=== PATIENT | female | born 1985 | race Caucasian/White ===

== ENCOUNTER 2025-02-05 09:56 | Day surgery (SDC) | payer BC, SELFPAY ==
[2025-01-21 11:27] LABS: Hematocrit 43.6 % (37-47); Hemoglobin 14.2 g/dL (12.0-15.0); Mean Corp Hgb Conc 32.6 g/dL (32-36); Mean Platelet Vol. 10.3 fl (6.2-12.0); Platelet Count 385 K/mm3 (150-450); RBC Distribution Width CV 12.9 % (11.6-14.6); RBC Distribution Width SD 40.2 fl (35.1-43.9); Red Blood Count 5.07 M/mm3 (4.2-5.4); White Blood Count 8.7 K/mm3 (4.4-11.0)
[2025-01-21 12:49] LABS: Anion Gap 12 (5-15); BUN 13 mg/dL (4-19); BUN/Creat Ratio 13.3 RATIO (10-20); Calcium,Total 9.9 mg/dL (7.6-11.0); Carbon Dioxide 23.4 mmol/L (21.0-32.0); Chloride 104 mmol/L (98-108); Creatinine, Serum 0.99 mg/dL (0.70-1.20); EST Glomerular Filtration Rate 75 (>60); Glucose 90 mg/dL (70-99); Potassium 4.1 mmol/L (3.3-5.1); Sodium Level 140 mmol/L (133-145)
--- NOTE | 2025-01-30 12:24 | PAT.ANESEVAL ---
Pre-Assessment Diagnosis/Proposed Procedure Planned Operative Procedure(s): (N/A) Abdominal Panniculectomy Anesthesia History Anesthesia History - sales support assistant: Anesthesia History - sales support assistant Hx Hospitalization No 01/26/25 14:47 Any Problems With Anesthesia No 01/26/25 14:47 Cholinesterase deficiency No 01/26/25 14:47 You/Your Family Experience No 01/26/25 14:47 fever (hyperthermia) with Relationship Recent Exposure to Contagious Disease Does patient have nerve No 01/26/25 14:47 stimulator Patient instructed to have device shut off --Does patient have Pacemaker or ICD? When Was Last Pacemaker Check QUESTION #4 FULL TEXT: You/Your Family Experience fever (hyperthermia) with Anesthesia Last Oral Intake Last Oral intake: Last Oral Intake NPO since Meds taken in AM with sips of water? Meds patient instructed to take am of surgery PONV PONV - sales support assistant: PONV - sales support assistant Female Yes 01/26/25 14:47 HX of Motion Sickness No 01/26/25 14:47 HX of N/V After Surgery Yes 01/26/25 14:47 Non-Smoker Yes 01/26/25 14:47 Duration of Surgery greater Yes 01/26/25 14:47 than 60 minutes Number of Risk Factors 4 01/26/25 14:47 PONV Score Severe Risk 01/26/25 14:47 Height & Weight Height & Weight: Anesthesia: Height & Weight Height 5 ft 4 in 01/28/25 09:28 Respiratory Assessment Respiratory Assessment - sales support assistant: Respiratory Tract Infection Hx - sales support assistant Hx Respiratory Tract Infection No 01/26/25 14:47 STOP Sleep Apnea STOP Sleep Apnea - sales support assistant: STOP Sleep Apnea - sales support assistant Hx Hypertension No 01/26/25 14:47 Hx Sleep Apnea No 01/26/25 14:47 CPAP BIPAP Do you snore loudly (louder No 01/26/25 14:47 than talking or can be heard Do you often feel tired/ No 01/26/25 14:47 fatigued/ sleepy during daytime? Has anyone observed you stop No 01/26/25 14:47 breathing during sleep? STOP Results Negative 01/26/25 14:47 QUESTION #5 FULL TEXT : Do you snore loudly (louder than talking or can be heard through closed doors)? 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 Specify any problems Hx of Preganancy in last 3 No 01/26/25 14:47 Months Nurse Filling Out Transfusion MGRIFFITH 01/26/25 14:47 & Questions: Date: 01/26/25 01/26/25 14:47 Time: 14:50 01/26/25 14:47 Patient unable to answer at this time (ie. confused, unrespo /Reproduction History /Reproductive History - sales support assistant: /Reproductive Hx- sales support assistant Hx Now No 01/26/25 14:47 Gestational Age (in weeks): EDC: Hx Hx Para Hx Section SAB No 01/26/25 14:47 [facility] Medical History (Updated 01/26/25 @ 14:58 by Willow Avery) Wears glasses Migraine headache Heartburn Non-smoker Cardiology follow-up encounter PONV (postoperative nausea and vomiting) History of frequent headaches History of goiter History of blood transfusion Home Medications ?Medication ?Instructions ?Recorded ?Last Taken ?Type L norgest/EE 1 tab PO QDAY 12/09/24 Unknown History 0.15-0.02mg/0.15-0.025mg/0.15-0.03mg/EE 0.01 mg tabs,3mo (Rivelsa) cephalexin 500 mg capsule 500 mg PO BID #14 caps 01/28/25 Unknown Rx oxycodone-acetaminophen 5 mg-325 1 tab PO TID PRN pain 3 days #8 01/28/25 Unknown Rx mg tablet (Percocet) tab-caps Allergy/AdvReac Type Severity Reaction Status Date / Time benzonatate (From Tessalon Allergy Mild Anaphylaxis Verified 01/26/25 14:44 Neville) codeine Allergy Mild Vomiting Verified 01/26/25 14:44 Family History (Updated 12/09/24 @ 11:04 by Maribel Whitehead) Father AA (alcohol abuse) Bleeding disorder Mother Depression Suicide attempt Surgical History (Updated 01/26/25 @ 14:48 by Willow Avery) History of tubal ligation History of wisdom tooth extraction History of surgery History of section History of foot surgery History of hernia surgery Social History (Updated 12/09/24 @ 11:17 by Maribel Whitehead) Smoking Status: Never smoker alcohol intake: never substance use type: does not use additional social history: pt denies edibles, denies marijuana use, denies vaping, uses aspirin and ibuprofen as needed. Audit: Pertinent Findings Pertinent Findings EKG Perinent findings: January 22, 2025. Sinus rhythm. Short DE interval. Slight mid precordial repolarization disturbance consider ischemia. (Primary care referred patient to cardiology to address abnormal EKG.) Consult pertinent findings: January 27, 2025. Dr. Jalloh. 1. Cardiac clearance for surgery-patient works out at a gym. Greater than 8 METS. No further testing required for upcoming moderate risk surgery. Recommendation Anesthesia Recommendation Anesthesia recommendation: OPTIMIZED for anesthesia
[2025-02-05] VITALS (10 sets, daily range): BP systolic 114–153; BP diastolic 53–89; PULSE 76–114; RESP 16–18; TEMP 36.1–37; O2SAT 94–100; BMI 29.2
[2025-02-05] MEDS: 0.9% Normal Saline (1000mL) 1,000 ML 15 ML IV (10:54)
--- NOTE | 2025-02-05 11:41 | PCM.PRE.AN2 ---
ASA Classification* ASA Classification ASA Classification: 3 Assessment & Plan Anesthesia* Anesthesia Assessment Anesthesia Assessment: Discussed sedation and/or anesthesia options, risks, benefits, and alternatives with patient/parents/legal guardian/POA. Questions invited. The patient/parents/legal guardian/POA seems to understand and agrees to proceed with anesthesia plan. Reviewed the physical assessment, medical history, allergy history and patient home medications list prior to surgery/procedure/anesthetic and documented any changes. Performed airway and anesthesia risk assessments. Anesthesia Type Anesthesia Type: General History Source History Obtained from:: Patient and Chart Anesthesia Focused Assessment* Temperature: 98.6 F Pulse Rate: 114 Blood Pressure: 153/89 Respiratory Rate: 18 Pulse Ox: 100 Oxygen Delivery Method: Room Air Airway Assessment Mouth opens: >3 cm Mallampati Score: III Teeth Condition: Intact Neck Range of motion (ROM): Full ROM Focused Labs Anesthesia Preop lab: CBC WBC 8.7 K/mm3 (4.4-11.0) 01/21/25 10:15 01/21/25 RBC 5.07 M/mm3 (4.2-5.4) 01/21/25 10:15 01/21/25 Hgb 14.2 g/dL (12.0-15.0) 01/21/25 10:15 01/21/25 Hct 43.6 % (37-47) 01/21/25 10:15 01/21/25 Plt Count 385 K/mm3 (150-450) 01/21/25 10:15 01/21/25 CHEMISTRY Potassium 4.1 mmol/L (3.3-5.1) 01/21/25 10:15 01/21/25 Sodium 140 mmol/L (133-145) 01/21/25 10:15 01/21/25 BUN 13 mg/dL (4-19) 01/21/25 10:15 01/21/25 Creatinine 0.99 mg/dL (0.70-1.20) 01/21/25 10:15 01/21/25 Glucose 90 mg/dL (70-99) 01/21/25 10:15 01/21/25 COAG Pre-Assessment Diagnosis/Proposed Procedure Planned Operative Procedure(s): (N/A) Abdominal Panniculectomy Anesthesia History Anesthesia History - protocol manager: Anesthesia History - protocol manager Hx Hospitalization No 01/26/25 14:47 Any Problems With Anesthesia PONV 01/26/25 14:47 Cholinesterase deficiency No 01/26/25 14:47 You/Your Family Experience No 01/26/25 14:47 fever (hyperthermia) with Relationship Recent Exposure to Contagious No 02/05/25 10:46 Disease Does patient have nerve No 01/26/25 14:47 stimulator Patient instructed to have device shut off --Does patient have Pacemaker No 02/05/25 10:46 or ICD? When Was Last Pacemaker Check QUESTION #4 FULL TEXT: You/Your Family Experience fever (hyperthermia) with Anesthesia Last Oral Intake Last Oral intake: Last Oral Intake NPO since 22:00 02/05/25 10:46 Meds taken in AM with sips of No 02/05/25 10:46 water? Meds patient instructed to take am of surgery PONV PONV - protocol manager: PONV - protocol manager Female Yes 01/26/25 14:47 HX of Motion Sickness No 01/26/25 14:47 HX of N/V After Surgery Yes 01/26/25 14:47 Non-Smoker Yes 01/26/25 14:47 Duration of Surgery greater Yes 01/26/25 14:47 than 60 minutes Number of Risk Factors 4 01/26/25 14:47 PONV Score Severe Risk 01/26/25 14:47 Height & Weight Height & Weight: Anesthesia: Height & Weight Height 5 ft 5 in 02/05/25 10:46 Weight: 79.9 kg 02/05/25 10:46 Body Mass Index (BMI) 29.2 02/05/25 10:46 Respiratory Assessment Respiratory Assessment - protocol manager: Respiratory Tract Infection Hx - protocol manager Hx Respiratory Tract Infection No 01/26/25 14:47 STOP Sleep Apnea STOP Sleep Apnea - protocol manager: STOP Sleep Apnea - protocol manager Hx Hypertension No 01/26/25 14:47 Hx Sleep Apnea No 01/26/25 14:47 CPAP BIPAP Do you snore loudly (louder No 01/26/25 14:47 than talking or can be heard Do you often feel tired/ No 01/26/25 14:47 fatigued/ sleepy during daytime? Has anyone observed you stop No 01/26/25 14:47 breathing during sleep? STOP Results Negative 01/26/25 14:47 QUESTION #5 FULL TEXT : Do you snore loudly (louder than talking or can be heard through closed doors)? 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 Specify any problems Hx of Preganancy in last 3 No 01/26/25 14:47 Months Nurse Filling Out Transfusion MGRIFFITH 01/26/25 14:47 & Questions: Date: 01/26/25 01/26/25 14:47 Time: 14:50 01/26/25 14:47 Patient unable to answer at this time (ie. confused, unrespo /Reproduction History /Reproductive History - protocol manager: /Reproductive Hx- protocol manager Hx Now No 01/26/25 14:47 Gestational Age (in weeks): EDC: Hx Hx Para Hx Section SAB No 01/26/25 14:47 Active Medications Active Medications: Current Medications Generic Name Dose Route Start Last Admin Trade Name Freq PRN Reason Stop Dose Admin Cefazolin Sodium 2 gm/ N/A 20 mls @ 400 mls/hr 02/05/25 13:05 IV 02/05/25 13:07 PREOP ONE Sodium Chloride 1,000 mls @ 15 mls/hr 02/05/25 10:10 02/05/25 10:54 IV 15 mls/hr .Q48H HOWIE Administration PFSH Medical History Wears glasses Migraine headache Heartburn Non-smoker Cardiology follow-up encounter PONV (postoperative nausea and vomiting) History of frequent headaches History of blood transfusion Home Medications ?Medication ?Instructions ?Recorded ?Last Taken ?Type L norgest/EE 1 tab PO QDAY 12/09/24 Unknown History 0.15-0.02mg/0.15-0.025mg/0.15-0.03mg/EE 0.01 mg tabs,3mo (Rivelsa) cephalexin 500 mg capsule 500 mg PO BID #14 caps 01/28/25 02/04/25 20:00 Rx Allergy/AdvReac Type Severity Reaction Status Date / Time benzonatate (From Tessalon Allergy Mild Anaphylaxis Verified 02/05/25 10:44 Neville) codeine Allergy Mild Vomiting Verified 02/05/25 10:44 Family History Father AA (alcohol abuse) Bleeding disorder Mother Depression Suicide attempt Surgical History (Updated 02/05/25 @ 11:[address] Wellington Coto MD) History of goiter History of tubal ligation History of wisdom tooth extraction History of surgery History of section History of foot surgery History of hernia surgery Social History Smoking Status: Never smoker alcohol intake: never substance use type: does not use additional social history: pt denies edibles, denies marijuana use, denies vaping, uses aspirin and ibuprofen as needed. Review of Systems (Anesthesia) ROS Narrative System reviewed and no additional complaints, except as documented.
--- NOTE | 2025-02-05 12:07 | PCM.HP.BLA ---
History and Physical Date of Admission: 02/05/25 The patient presents for abdominal panniculectomy. The patient is noted to have an abdominal pannus. She is marked in the preop holding area prior to surgery. Informed consent was obtained for abdominal panniculectomy. There are no changes from the H&P dated 01/27/2025. Assessment & Plan Assessment/Plan (1) Painful cutaneous scar: (2) Intertrigo: (3) Panniculus: PLAN: Plan Patient for abdominal panniculectomy.
[2025-02-05] MEDS: Cefazolin 2 GM in Syringe IV (12:42)
[2025-02-05] MEDS: Bupivacaine 0.25% 30 ML Vial (15:05)
[2025-02-05] MEDS: Gentamicin 80 MG/2 ML Vial (15:05)
--- NOTE | 2025-02-05 15:31 | DCINST_ITS ---
Discharge Instructions Dressing / Incision Additional Dressing/Incision Instructions:: Follow the instructions given in the office. Keep your back elevated (recliner position) Follow Up Care Please Follow Up With: Mi Scott MD When: Next week Test Results: Test results from this visit will be discussed in further detail at your follow- up appointment, if applicable. Discharge Plan Admission Attending Provider: Mi Scott Primary Care Provider: Tana Jasso Instructions Print Language: Icelandic Discharge Orders/Prescriptions Prescriptions: No Action L norgest/e.estradiol-e.estrad [Rivelsa] 0.15 mg-20 mcg/ 0.15 mg-25 mcg tablets,dose pack,3 month 1 tab PO QDAY cephalexin 500 mg capsule 500 mg PO BID Qty: 14 0RF Referrals / Follow Up: Tana Jasso MD [Primary Care Provider] - Disposition Disposition (needs filled in before D/C Order can be placed): Home, Self Care
--- NOTE | 2025-02-05 15:33 | OP.PCM_ITS ---
Problems Associated Problem List Diagnoses (1) Painful cutaneous scar: (2) Intertrigo: (3) Panniculus: Operative Report (Standard) Operative Information Date of Procedure: 02/05/25 Pre-Operative Diagnosis: Abdominal panniculus; intertrigo; painful scar Post-Operative Diagnosis: Same Surgery/Procedure Performed: Panniculectomy (870gm) upper lining cementer: Yes Business Continuity Analyst: Bina Michelle Tasks completed by museum assistant: Closing and Retracting Type of Anesthesia: General RN Documented Start/Stop Times: Operation Date: 02/05/25 12:00 Case Time Into Pre-Op 02/05/25 10:07 Out of Pre-Op 02/05/25 12:38 Anesthesia Start 02/05/25 12:42 Into Room 02/05/25 12:42 Procedure Start 02/05/25 13:16 Procedure End 02/05/25 15:16 Procedure Start Time: 13:16 Procedure Stop Time: 15:16 Select all DRAINS/GRAFTS/IMPLANTS that apply: None Estimated Blood Loss: 50 cc Specimen collected: No Description of surgery: The patient presents today for panniculectomy for her chronic intertrigo. The procedure been thoroughly reviewed with the patient. Informed consent is obtained and she is marked in the preop holding area prior to surgery. The patient is brought to the operating room and placed under general anesthesia in the supine position. Care is taken to pad all pressure points, insert a Chen catheter, sequential compression stockings, and a warming blanket. The abdomen is prepped and draped in the usual sterile fashion. Following this, an incision is made across the premarked area and carefully carried down through the subcutaneous tissue. The fascia is identified and careful dissection continued cephalad undermining the previously marked limits of the panniculus. Following this, the patient is placed in a semi-Fowlers position and the extent of the redundant skin and subcutaneous fat is demarcated. After taking measures to ensure dissection does not extend the fascia, the demarcated area is incised and excised. The wound is then irrigated with antibiotic solution and checked for hemostasis which is controlled with cautery. Following this, the incision is tacked together along the premarked areas and stapled. A few Vicryl sutures are placed in the deep subcutaneous tissue. Wound closure then commences in 3 layers using a 3-0 STRATAFIX suture. At the conclusion of the closure, 1/4% plain Marcaine is used to inject along the incision. The wound is dressed with Xeroform and ABDs and taped in place. She is placed in an abdominal binder. The Chen catheter is removed. She tolerated the procedure well was taken to the recovery area in an awake and stable condition. Needle and sponge counts are correct. Surgical Findings: As above Complications Complications: No Admit VTE Documentation VTE Mechan Device Prophylaxis: SCD's
--- NOTE | 2025-02-05 15:34 | PCM.POST.ANE ---
Anesthesia: Postop Eval I Current Vital Signs Temperature: 98.1 F Pulse Rate: 88 Blood Pressure: 128/59 Respiratory Rate: 18 Pulse Ox: 97 Oxygen Delivery Method: Room Air Assessment Airway patent: Yes Spontaneous unlabored respirations: Yes Mental status: Awake and Calm nausea: No Vomiting: No Anesthesia Complication: No Fluid Hydration Crystalloid volume administer (ml): 1,500 Total IV fluid infused: 1,500 Progress Note Anesthesia document: Postop Eval 1 completed: Yes
--- NOTE | 2025-02-05 19:17 | POSTOPAN2_ITS ---
Anesthesia Postop Eval I Sum Postop Eval Completion status Anesthesia document: Postop Eval 1 completed: Yes Anesthesia Postop Eval I Summary Anesthesia Postop Eval I Summary: Anesthesia Postop Eval I: Assessment Summary Airway patent Yes 02/05/25 15:34 UNIVERSITY RELATIONS VICE PRESIDENT.MEDM Spontaneous unlabored Yes 02/05/25 15:34 UNIVERSITY RELATIONS VICE PRESIDENT.MEDM respirations Mental status Awake,Calm 02/05/25 15:34 UNIVERSITY RELATIONS VICE PRESIDENT.MEDM nausea No 02/05/25 15:34 UNIVERSITY RELATIONS VICE PRESIDENT.MEDM Vomiting No 02/05/25 15:34 UNIVERSITY RELATIONS VICE PRESIDENT.MEDM Anesthesia Postop Eval I: Fluid Summary Crystalloid volume administer 1,500 02/05/25 15:34 UNIVERSITY RELATIONS VICE PRESIDENT.MEDM (ml) Colloids volume administered ( ml) Blood Product volume administered (ml) Total IV fluid infused 1,500 02/05/25 15:34 UNIVERSITY RELATIONS VICE PRESIDENT.MEDM Anesthesia Postop Eval I: Summary Notes Anesthesia Complication No 02/05/25 15:34 UNIVERSITY RELATIONS VICE PRESIDENT.MEDM Anesthesia Complication Comment: Post-operative progress note Anesthesia: Postop Eval II Evaluation Mental status: Awake and Calm Pain Level: 3 nausea: No Vomiting: No Complications Anesthesia Complication: No
--- NOTE | 2025-02-05 19:17 | PCM.POSTANE2 ---
Anesthesia Postop Eval I Sum Postop Eval Completion status Anesthesia document: Postop Eval 1 completed: Yes Anesthesia Postop Eval I Summary Anesthesia Postop Eval I Summary: Anesthesia Postop Eval I: Assessment Summary Airway patent Yes 02/05/25 15:34 RECHARGER.MEDM Spontaneous unlabored Yes 02/05/25 15:34 RECHARGER.MEDM respirations Mental status Awake,Calm 02/05/25 15:34 RECHARGER.MEDM nausea No 02/05/25 15:34 RECHARGER.MEDM Vomiting No 02/05/25 15:34 RECHARGER.MEDM Anesthesia Postop Eval I: Fluid Summary Crystalloid volume administer 1,500 02/05/25 15:34 RECHARGER.MEDM (ml) Colloids volume administered ( ml) Blood Product volume administered (ml) Total IV fluid infused 1,500 02/05/25 15:34 RECHARGER.MEDM Anesthesia Postop Eval I: Summary Notes Anesthesia Complication No 02/05/25 15:34 RECHARGER.MEDM Anesthesia Complication Comment: Post-operative progress note Anesthesia: Postop Eval II Evaluation Mental status: Awake and Calm Pain Level: 3 nausea: No Vomiting: No Complications Anesthesia Complication: No
== END 2025-02-05 17:36 | disposition home or self-care (01) ==
LOC: SDC 09:59 → AC 10:01
PROVIDERS: PCP Family Medicine; Referring Provider Plastic Surgery; Visit Provider Plastic Surgery
PROC: 0JB80ZZ Excision of Abdomen Subcutaneous Tissue and Fascia, Open Approach (ICD-10-PCS; CPT 15830; principal; 2025-02-05 11:45)
DX: E65 Localized adiposity (principal); L30.4 Erythema intertrigo; L90.5 Scar conditions and fibrosis of skin; L98.7 Excessive and redundant skin and subcutaneous tissue
CPT/HCPCS: 15830; 00802; 36415; 80048; 85027; J2405